=== PATIENT | male | born 1960 | race Caucasian/White ===

== ENCOUNTER 2019-12-03 11:27 | Emergency (ER) | payer BC ==
[~2019-12-03] VITALS: Ht 175.3 cm; Wt 78.8 kg
--- NOTE | 2019-12-03 13:15 | RAD ---
Left femur 2 views 12/03/2019. Reason for exam: Pain after falling. No fracture or dislocation is seen. There is no apparent foreign body or joint narrowing. IMPRESSION: No acute abnormality. Left hip 2 views including AP pelvis No fracture or dislocation is seen at the hip. There is no joint narrowing. AP view of the pelvis shows no fracture, dislocation or other acute abnormality. IMPRESSION: No apparent acute abnormality. Electronically signed by: Patrick Rush Jr., MD (12/03/2019 1:12 PM) LY
[2019-12-03] MEDS ORDERED: CYCL5TAB PO (13:52)
[2019-12-03] MEDS ORDERED: IBUP600T16 PO (13:52)
--- NOTE | 2019-12-03 13:52 | PHYS DOC ---
Past History Past Medical History: No Pertinent History Past Surgical History: No Surgical History Alcohol Use: None General Adult EDM: Chief Complaint: HIP PAIN HPI: HPI: 59-year-old male who denies any past medical history, follows with Dr. Simmons, presents to the ED with c/o "I think I'm younger than I am," c/o left hip and left proximal thigh pain that started yesterday after patient fell while jumping over a fence. Patient states he landed on his left hip onto concrete and rocks, states he heard a pop. Pain is worsened with hip flexion and abduction. Pain is absent at rest, when sitting or standing, only present with movement. Has not taken anything for the pain. No prior left hip injury. Did not hit his head or lose consciousness. Not on any anticoagulants. Was not under the influence of alcohol or drugs. Review of systems: Denies associated fever, chills, headache, blurry vision, neck stiffness, sore throat, cough, chest pain, dyspnea, hemoptysis, saddle anesthesia, urinary bowel retention or incontinence, leg swelling, rash, midline back pain, sensorimotor deficits, nausea, vomiting, diarrhea, abdominal pain or back pain. Heart Score: Risk Factors: Risk Factors: DM, Current or recent (<one month) smoker, HTN, HLP, family history of CAD, obesity. Risk Scores: Score 0 - 3: 2.5% MACE over next 6 weeks - Discharge Home Score 4 - 6: 20.3% MACE over next 6 weeks - Admit for Clinical Observation Score 7 - 10: 72.7% MACE over next 6 weeks - Early Invasive Strategies Allergies: Allergies: Allergies Coded Allergies Type Severity Reaction Last Updated Verified No Known Drug Allergies 12/03/19 No Physical Exam: PE: Constitutional: Well developed, well nourished, no acute distress, non-toxic appearance. [] HENT: Normocephalic, atraumatic, Eyes: PERRLA, EOMI, conjunctiva normal, no discharge. [] Neck: Normal range of motion, no tenderness, supple, no stridor. [] Cardiovascular:Heart rate regular rhythm, no murmur [] Lungs & Thorax: Bilateral breath sounds clear to auscultation [] Abdomen: Bowel sounds normal, soft, no tenderness, no masses, no pulsatile masses. [] Skin: Warm, dry, no erythema, no rash. [] Back: No tenderness, no CVA tenderness. [] Extremities: Unable to reproduce tenderness, pain is located at proximal left femur and over left inguinal crease - no hernias, no cyanosis, no clubbing, ROM intact, no edema. [] Neurologic: Alert and oriented X 3, normal motor function, normal sensory function, no focal deficits noted. [] Psychologic: Affect normal, judgement normal, mood normal. [] Current Patient Data: Vital Signs: Vital Signs Date Time Temp Pulse Resp B/P (MAP) Pulse Ox O2 Delivery O2 Flow Rate FiO2 12/03/19 11:46 98.1 88 16 117/80 (92) 97 Room Air EKG: EKG: [] Radiology/Procedures: Radiology/Procedures: []IMAGING REPORT Signed PATIENT: PERRY ALVAREZ ACCOUNT: [id number] : 1960 LOCATION: ER AGE: 59 SEX: M EXAM STATUS: REG ER ORD. PHYSICIAN: RADHA BRAMBILA DO REASON: left prox thigh pain s/p fall PROCEDURE: LEFT FEMUR XRAY Left femur 2 views 12/03/2019. Reason for exam: Pain after falling. No fracture or dislocation is seen. There is no apparent foreign body or joint narrowing. IMPRESSION: No acute abnormality. Left hip 2 views including AP pelvis No fracture or dislocation is seen at the hip. There is no joint narrowing. AP view of the pelvis shows no fracture, dislocation or other acute abnormality. IMPRESSION: No apparent acute abnormality. Electronically signed by: Irving Rush Jr., MD (12/03/2019 1:12 PM) [facility] DICTATED AND SIGNED BY: IRVING RUSH Jr, MD DATE: 12/03/19 1312 CC: RADHA BRAMBILA DO; ERIC GUILLAUME IMAGING REPORT Signed PATIENT: PERRY ALVAREZ ACCOUNT: [id number] : 1960 LOCATION: ER AGE: 59 SEX: M EXAM STATUS: REG ER ORD. PHYSICIAN: RADHA BRAMBILA DO REASON: left hip pain s.p fall PROCEDURE: HIP LEFT 2V WITH PELVIS Left femur 2 views 12/03/2019. Reason for exam: Pain after falling. No fracture or dislocation is seen. There is no apparent foreign body or joint narrowing. IMPRESSION: No acute abnormality. Left hip 2 views including AP pelvis No fracture or dislocation is seen at the hip. There is no joint narrowing. AP view of the pelvis shows no fracture, dislocation or other acute abnormality. IMPRESSION: No apparent acute abnormality. Electronically signed by: Irving Rush Jr., MD (12/03/2019 1:12 PM) [facility] DICTATED AND SIGNED BY: IRVING RUSH Jr, MD DATE: 12/03/19 8511 CC: RADHA BRAMBILA DO; ERIC GUILLAUME ~ Course & Med Decision Making: Course & Med Decision Making Pertinent Labs and Imaging studies reviewed. (See chart for details) Concern for MSK sprain or ligamentous strain in the setting of blunt trauma. Hip and pelvic x-rays with no apparent fracture. Patient will be prescribed muscle relaxers and recommended conservative management. Strict ED return precautions given for neurologic deficits. Encouraged urgent outpatient follow- up with PMD and Ortho. Life-threatening processes were considered but are low suspicion at this time, given history and physical exam. Pt was educated on all prescription medications and adverse effects. All patient's questions were answered and pt was stable at time of discharge. Differential includes fracture, dislocation, laceration, osteomyelitis, compartment syndrome, neurovascular injury or deficit, infection (abscess, cellulitis, septic arthritis), tendon or ligament injury. I spoken with the patient and her caregivers. I explained the patient's condition, diagnoses and treatment plan based on the information available to me at this time. I have answered the patient and her caregiver's questions and addressed any concerns. The patient and her caregivers have a good understanding of patient's diagnosis, condition and treatment plan as can be expected at this point. Vital signs have been stable. Patient's condition is stable and appropriate for discharge from the emergency department. Patient will pursue further outpatient evaluation with primary care physician or other designated or consulting physician as outlined in the discharge instructions. The patient and/or caregivers are agreeable to this plan of care and follow-up instructions have been explained in detail. The patient and/or caregivers have received these instructions in written form and have expressed an understanding of the discharge instructions. The patient and/or caregivers are aware that any significant change of condition or worsening of symptoms should prompt immediate return to this or the closest emergency department or call to 911. Stefano Disclaimer: Stefano Disclaimer: This electronic medical record was generated, in whole or in part, using a voice recognition dictation system. Departure Departure: Impression: Primary Impression: Left hip pain Additional Impression: Musculoligamentous strain Disposition: HOME/RESIDENCE PRIOR TO ADM Condition: STABLE Referrals: REIC GUILLAUME (PCP) Patient Instructions: Musculoskeletal Pain Additional Instructions: Girma Murdock MD Primary Specialties Orthopaedic Surgery Sports Medicine [facility] Address: [address] [place] [address] Scripts Ibuprofen (IBUPROFEN) 600 Mg Tablet 600 MG PO Q6HRS for headache, #20 TAB Prov: RADHA BRAMBILA DO 12/03/19 Cyclobenzaprine Hcl (CYCLOBENZAPRINE HCL) 5 Mg Tablet 1 TAB PO TID PRN for PAIN, #20 TAB Prov: RADHA BRAMBILA DO 12/03/19 Justification of Admission: Justification of Admission: Justification of Admission Dx: N/A RADHA BRAMBILA DO Dec 03, 2019 13:52
[2019-12-03 14:04] VITALS: BP 136/54
== END 2019-12-03 14:00 | disposition home or self-care (01) ==
LOC: ER 11:27
DX: S76.812A Strain of other specified muscles, fascia and tendons at thigh level, left thigh, initial encounter (principal); W17.89XA Other fall from one level to another, initial encounter; Y93.39 Activity, other involving climbing, rappelling and jumping off; Y92.89 Other specified places as the place of occurrence of the external cause; Y99.8 Other external cause status
CPT/HCPCS: 73502; 73552; 99284